=== PATIENT | male | born 1980 ===

== ENCOUNTER 2019-01-03 23:21 | Emergency (ER) | payer MEDICAID ==
[~2019-01-03] VITALS: Ht 177.8 cm; Wt 80.4 kg
[2019-01-03 23:25] VITALS: BP 114/79
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
[2019-01-03] MEDS ORDERED: LIDOCAINE 1%-EPI 1:100K, 20ML ONE (23:48)
[2019-01-04] MEDS ORDERED: LIDOCAINE 1%-EPI 1:100K, 20ML INFIL ONE
[2019-01-04] MEDS ORDERED: DIPH,PERTUSS(ACELL),TET VAC/PF 0.5 ML IM-VACC ONE ×2 (00:06)
== END 2019-01-04 00:16 | disposition home or self-care (01) ==
LOC: ED 23:40
DX: S01.81XA Laceration without foreign body of other part of head, initial encounter (principal); W26.0XXA Contact with knife, initial encounter; Y93.89 Activity, other specified; Y92.828 Other wilderness area as the place of occurrence of the external cause; Y99.8 Other external cause status
CPT/HCPCS: 12011; 90471; 90715; 99283